=== PATIENT | female | born 1985 | race Caucasian/White ===

== ENCOUNTER → 2016-10-11 | Outpatient (CLI) | payer BC ==
[~2016-10-11] MED LIST: BIRTH CONTROL PILL PO; FERRO-TIME325 MG PO; MULTI VITAMIN1 EACH PO; PRENATAL MULTI1 EAC3 PO; TYSABRI IVP
[2016-10-11 07:16] LABS: HEMATOCRIT 38.2 % (35.0-45.0); HEMOGLOBIN 12.5 gm/dL (12.0-16.0); MEAN CELL VOLUME 81.2 FL (83-96); MEAN CORPUSCULAR HEMOGLOBIN 26.6 PG (28-34); MEAN CORPUSCULAR HGB CONC 32.7 g/dL (30-36); MEAN PLATELET VOLUME 8.7 FL (6.5-11.5); RED BLOOD COUNT 4.71 X10e (3.90-5.30); RED CELL DISTRIBUTION WIDTH 15.3 % (11.0-15.5); WHITE BLOOD COUNT 7.4 X10e3 (4.0-10.5)
[2016-10-11 07:38] LABS: ALBUMIN SERUM 4.3 g/dL (3.5-5.0); ALKALINE PHOSPHATASE 52 U/L (32-92); ALT (SGPT) 16 U/L (10-40); AST (SGOT) 18 U/L (10-42); BILIRUBIN,TOTAL 0.9 mg/dL (0.2-2.0); BLOOD UREA NITROGEN 16 mg/dL (9-23); CALCIUM SERUM 8.9 mg/dL (8.4-10.2); CARBON DIOXIDE 25 mmol/L (22-31); CHLORIDE 108 mmol/L (100-111); CREATININE SERUM 0.8 mg/dL (0.6-1.4); GLOM FILT RATE Estimated ABOVE60 mL/min (>60); GLUCOSE FASTING 84 mg/dL (70-110); POTASSIUM 4.2 mmol/L (3.5-5.1); PROTEIN TOTAL SERUM 7.4 g/dL (6.0-8.3); SODIUM 136 mmol/L (135-145)
== END | disposition home or self-care (01) ==
LOC: CSSDAY 06:41
PROVIDERS: Nurse Practitioner
DX: G35 Multiple sclerosis (principal); Z79.899 Other long term (current) drug therapy
CPT/HCPCS: 36415; 80053; 85027; 96413; J2323

== ENCOUNTER → 2016-11-08 | Outpatient (CLI) | payer BC | END | disposition home or self-care (01) | LOC: CSSDAY 06:46 | DX: G35 Multiple sclerosis (principal); Z79.899 Other long term (current) drug therapy | CPT/HCPCS: 96413; J2323 ==

== ENCOUNTER → 2016-12-06 | Outpatient (CLI) | payer BC | END | disposition home or self-care (01) | LOC: CSSDAY 07:08 | DX: G35 Multiple sclerosis (principal); Z79.899 Other long term (current) drug therapy | CPT/HCPCS: 96413; J2323 ==

== ENCOUNTER → 2017-01-03 | Outpatient (CLI) | payer BC | END | disposition home or self-care (01) | LOC: CSSDAY 07:01 | DX: G35 Multiple sclerosis (principal); Z79.899 Other long term (current) drug therapy | CPT/HCPCS: 96413; J2323 ==

== ENCOUNTER → 2017-02-07 | Outpatient (CLI) | payer BC | END | disposition home or self-care (01) | LOC: CSSDAY 01-31 07:15 | DX: G35 Multiple sclerosis (principal); Z79.899 Other long term (current) drug therapy | CPT/HCPCS: 96413; J2323 ==

== ENCOUNTER → 2017-03-07 | Outpatient (CLI) | payer BC | END | disposition home or self-care (01) | LOC: CSSDAY 06:41 | DX: G35 Multiple sclerosis (principal) | CPT/HCPCS: 96365; 96413; J2323 ==

== ENCOUNTER → 2017-04-18 | Outpatient (CLI) | payer BC ==
[2017-04-18 07:12] LABS: BASOPHIL% 0.5 % (0-2.5); DIFF IND YES; EOSINOPHIL# 0.2 X10e3 (0-0.7); EOSINOPHIL% 2.6 % (0.0-7.0); HEMATOCRIT 37.4 % (35.0-45.0); HEMOGLOBIN 12.2 gm/dL (12.0-16.0); LYMPHOCYTE# 4.6 X10e3 (1.0-3.5); LYMPHOCYTE% 61.1 % (17.0-45.0); MEAN CELL VOLUME 83.9 FL (83-96); MEAN CORPUSCULAR HEMOGLOBIN 27.4 PG (28-34); MEAN CORPUSCULAR HGB CONC 32.7 g/dL (30-36); MEAN PLATELET VOLUME 8.5 FL (6.5-11.5); MONOCYTE# 0.5 X10e3 (0-1.0); MONOCYTE% 6.8 % (3.0-12.0); NEUTROPHIL# 2.2 X10e3 (1.5-7.1); PLATELET COUNT 231 X10e3 (140-420); RED BLOOD COUNT 4.46 X10e (3.90-5.30); WHITE BLOOD COUNT 7.5 X10e3 (4.0-10.5)
[2017-04-18 07:32] LABS: ALBUMIN SERUM 4.4 g/dL (3.5-5.0); BUN/CREATININE RATIO 18.75; CREATININE SERUM 0.8 mg/dL (0.6-1.4); POTASSIUM 3.6 mmol/L (3.5-5.1); PROTEIN TOTAL SERUM 7.4 g/dL (6.0-8.3)
[2017-04-18 07:51] LABS: ANISOCYTOSIS SL; PLATELET ESTIMATE NORMAL (NORMAL)
== END | disposition home or self-care (01) ==
LOC: CSSDAY 06:34
PROVIDERS: Nurse Practitioner
DX: G35 Multiple sclerosis (principal)
CPT/HCPCS: 80053; 85025; 96413; J2323